=== PATIENT | male | born 1950 | race Caucasian/White ===

== ENCOUNTER 2018-06-18 05:49 | Day surgery (SDC) | payer MEDICARE ==
[2018-06-06 11:58] VITALS: BMI 28.5
[2018-06-18] MEDS ORDERED: CEFAZOLIN/Water 2 GM/20 ML SYRINGE ONE (06:00)
[2018-06-18] MEDS ORDERED: Bupivacaine PF 0.5% 30 ML VIAL ONE (06:38)
[2018-06-18] MEDS ORDERED: Lidocaine 2% PF Inj 2 ML VIAL ONE (06:38)
[2018-06-18] MEDS ORDERED: Bupivacaine/Epinephrine 0.25% 30 ML VIAL ONE (06:38)
[2018-06-18] MEDS ORDERED: Midazolam HCl 2 mg/2 ml Vial ONE (06:45)
[2018-06-18] MEDS ORDERED: Fentanyl 250 MCG/5 ML VIAL ONE (06:45)
[2018-06-18] MEDS ORDERED: Ketorolac Tromethamine 30 MG/ML VIAL ONE (13:57)
[2018-06-18] MEDS ORDERED: ePHEDrine/0.9% NaCl/PF SYRINGE 50 mg/10 ml ONE (13:57)
[2018-06-18] MEDS ORDERED: Dexamethasone 20 MG/5 ML VIAL ONE (13:57)
[2018-06-18] MEDS ORDERED: Ondansetron HCl/PF 4 MG/2 ML Vial ONE (13:57)
[2018-06-18] MEDS ORDERED: PROPOFOL 200 MG/20 ML VIAL ONE (13:57)
[2018-06-18] MEDS ORDERED: Lidocaine 1% PF 5 ML VIAL ONE (13:57)
--- NOTE | 2018-06-19 10:16 | OP ---
DATE OF PROCEDURE: 06/18/2018 PREOPERATIVE DIAGNOSIS: Right inguinal hernia. POSTOPERATIVE DIAGNOSIS: Right inguinal hernia. PROCEDURE: Right inguinal hernia repair with mesh, PHS extended. SURGEON: Dr. Augusto Yu ANESTHESIA: General. ESTIMATED BLOOD LOSS: Minimal. COMPLICATIONS: None. SPECIMEN: None. FINDINGS: Indirect right inguinal hernia. TECHNIQUE: The patient was taken to the operating room, placed supine on the table. After general a nesthetic was obtained, the bilateral groin and abdomen shaved, prepped, and draped in a sterile [facility] ion. Oblique incision made above the pubic tubercle in the right lower quadrant. Cautery used to di ssect down through Jossue's to expose the external oblique, external oblique fibers opened along the course of the external ring. Contents inguinal canal were resected backside external oblique. Ilioi nguinal inguinal nerve was found and segmentally high removed to prevent postop pain. Cord structure s were mobilized on the pubic tubercle using a Faraz drain. Dissection superior medially on the co rd showed there to be an indirect hernia sac. The indirect hernia sac was dissected away from the ot her cord structures. It was opened to reveal no intra-abdominal contents. A high ligation was perfo rmed using 2-0 silk. The hernia sac was inverted back into the abdominal cavity. Preperitoneal spac e was bluntly dissected through the indirect defect. PHS extended mesh brought into the sterile fiel d. The onlay is placed in the preperitoneal space, its fibers laid out flat against the posterior ab dominal wall, overlay was laid in the floor of the inguinal canal. Overlay is sewn distally to the p ubic tubercle, medially to the transverse arch and laterally to the shelving edge of inguinal ligamen t. The mesh is cut to wrap around the internal ring. The two ends of cut mesh were reapproximated a t the shelving edging of inguinal ligament laterally. The extra mesh is tucked back under the radio antenna installer al oblique proximally. The wound was irrigated. Local anesthetic is applied. Tunneled catheter for postop pain placed above the wound and left on top of the mesh. External oblique was closed using 3 -0 Vicryl. Jossue was closed using external 3-0 Vicryl. Skin was closed using running 4-0 Monocryl and Dermabond. The patient is en route to recovery in stable condition. All instrument counts, need le counts, lap counts are correct.
== END 2018-06-18 09:37 | disposition home or self-care (01) ==
LOC: SDC 05:49
PROVIDERS: ATTEND Surgery
PROC: 0YU50JZ Supplement Right Inguinal Region with Synthetic Substitute, Open Approach (ICD-10-PCS; principal; 2018-06-18)
DX: K40.90 Unilateral inguinal hernia, without obstruction or gangrene, not specified as recurrent (principal); I10 Essential (primary) hypertension; Z79.899 Other long term (current) drug therapy
CPT/HCPCS: 49505; A4306; C1781; J0131; J1100; J1885; J2001; J2250; J2405; J2704; J3010; S0020

== ENCOUNTER 2019-03-26 08:52 | Outpatient (CLI) | payer MEDICARE ==
[~2019-03-26 08:52] MED LIST: EPINEPHrine 1 MG/ML AMP ONE; Gadobenate Dimeglumine 529 MG/1 ML (20ML VIAL) ONE; Iopamidol 300 61% 50 ML VIAL FS ONE; Lidocaine 1% PF 10 ML AMP ONE
--- NOTE | 2019-03-26 10:04 | RAD ---
Procedure: Right shoulder arthrogram Preprocedure diagnosis: Right shoulder pain [employer]: Mahendra Anesthesia: 5 mL of buffered 1% lidocaine Contrast: 13 mL of gadolinium admixture TECHNIQUE: Prior to the procedure, the risks and benefits of a shoulder arthrogram were explained to the patient which consented fully to the procedure. Dry Boss radiographs were performed showing no significant degenerative changes. No fracture or dislocat ion are seen. A radiopaque marker was used to savanna the site of best entry into the shoulder joint. The shoulder was then prepped and draped in the usual sterile fashion. A 22-gauge spinal needle was then placed using fluoroscopic guidance into the right shoulder joint. C ontrast was administered which conformed to the right shoulder joint. A total of 13 mL of contrast was administered which adequately distended the capsule. The needle was then removed. The patient tolerated the procedure well without immediate post procedure complication. They were sen t to MRI for MRI of the shoulder.
--- NOTE | 2019-03-26 10:58 | MRI ---
MRI Upper Ext Jt Rt W Con HISTORY: Right shoulder pain COMPARISON: None. 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 There is a massive rotator cuff tear, this inv olves the supra and infraspinatus tendons. The tendon is retracted by approximately 3.6 cm with an AP dimension of the tear of approximately 4 cm. Subscapularis muscle and tendon are intact the biceps tendon is normal in position within the bicipit al groove. No labral abnormalities are appreciated. The inferior glenohumeral ligament is intact. These images were performed as fat saturated sequences therefore is difficult to evaluate the degree of fatty infiltration of the muscle. The muscle bulk of the rotator cuff muscles does not appear decreased. IMPRESSION: Massive rotator cuff tearing involving basically the entirety of the supra and infraspina tus tendons
== END 2019-03-26 08:53 | disposition home or self-care (01) ==
LOC: RAD 08:52
PROVIDERS: ATTEND Pediatrics Sports Medicine
DX: M25.511 Pain in right shoulder (principal); M75.101 Unspecified rotator cuff tear or rupture of right shoulder, not specified as traumatic
CPT/HCPCS: 23350; 85060; 87070; 87205; 89051; 89060; A9577; J0171; J2001; J7050; Q9967